=== PATIENT | female | born 1965 | race Caucasian/White ===

== ENCOUNTER 2021-07-06 06:29 | Day surgery (SDC) | payer OTHER ==
[~2021-07-06] VITALS: Ht 157.5 cm; Wt 157.5 kg
[~2021-07-06 06:29] MED LIST: BACLOFEN20 MG PO; FLUOXETINE HCL20 M1 PO; MELOXICAM7.5 MG PO; NEURONTIN800 MG PO; VITAMIN D250 MCG PO
--- NOTE | 2021-07-06 08:23 | NUR ---
PT ALERT, ORIENTED AND SUPPORTED BY HER . PT HAS RECENTLY MOVED TO [place] FROM [place] [place]. PT HERE FOR FIRST SCOPE, DEALT WITH PREP APPROPRIATELY. ALL QUESTIONS ASKED ANSWERED. PT REQUESTED PRAYER
--- NOTE | 2021-07-06 08:37 | NUR ---
07/06/21 0837 Mariosl Prather 0846-PATIENT ARRIVED TO PACU ON 2L NC RR EVEN. PATIENT VERY DROWSY EYES OPEN DENIES PAIN OR NAUSEA. FOLLOWS COMMANDS. ABDOMEN SOFT. IVF INFUSING. PATIENT FALLS BACK ASLEEP.
--- NOTE | 2021-07-06 09:41 | OR ---
[facility] [address], [place] [address] Signed DATE OF OPERATION: 07/06/2021 SURGEON: Randall Buchanan MD PREOPERATIVE DIAGNOSIS: Screening. POSTOPERATIVE DIAGNOSES: 1. Minimal to moderate sigmoid diverticulosis. 2. Minimal internal hemorrhoids. PROCEDURE: Colonoscopy without biopsy. ESTIMATED BLOOD LOSS: None. INDICATIONS: Reinaldo is a 55-year-old female, who was asked to see me for her initial screening colonoscopy. She describes her baseline as having multiple loose bowel movements each day. She has no family history of colon cancer or polyps. 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 In the office, I gave her a pamphlet on colonoscopy. She understands the nature of that test. There is risk including, but not limited to gas, bloating, crampy abdominal pain, bleeding, perforation requiring surgery, and missed diagnosis. She also understands the need for IV conscious sedation. She had expressed understanding and wished to proceed. PROCEDURE IN DETAIL: Reinaldo was taken into our endoscopy suite and placed in the left lateral decubitus position. She was given divided doses of 6 mg of Versed and 125 mcg of fentanyl to cover the case. A digital rectal exam was performed and this was unremarkable. The adult colonoscope was introduced and advanced all around into the cecum under direct visualization of camera without difficulty. Her prep was quite excellent. We could easily see the appendiceal orifice and the ileocecal valve. The scope was then slowly withdrawn. She does have diverticula in the sigmoid colon. They were minimal to moderate in number, moderate in size and scattered about. The rectum itself was unremarkable. Upon retroflexion of the scope, she has very minimal internal hemorrhoid tissue. After this, the gas was suctioned out and colonoscope removed. Reinaldo tolerated the procedure quite well. Electronically Signed By: RANDALL BUCHANAN MD 07/06/21 0941 PATIENT NAME: REINALDO DAWN OPERATIVE REPORT DATE OF : 65 REPORT #: [id number] PHYSICIAN: RANDALL BUCHANAN MD PCP: MEG COMBS PA-C REPORT IS CONFIDENTIAL AND NOT TO BE RELEASED WITHOUT AUTHORIZATION [address] [address] Signed RECOMMENDATIONS: Reinaldo can follow up in 10 years for repeat colonoscopy. Randall Buchanan MD ALB/MODL /[id number] cc: MD Meg Gage PA-C Copies: RANDALL BUCHANAN MD ~ Electronically Signed By: RANDALL BUCHANAN MD 07/06/21 0941 PATIENT NAME: REINALDO DAWN OPERATIVE REPORT DATE OF : 65 REPORT #: [id number] PHYSICIAN: RANDALL BUCHANAN MD PCP: MEG COMBS PA-C REPORT IS CONFIDENTIAL AND NOT TO BE RELEASED WITHOUT AUTHORIZATION
== END 2021-07-06 09:32 | disposition home or self-care (01) ==
LOC: DS 06:29
PROVIDERS: ATTEND Colon & Rectal Surgery
PROC: 0DJD8ZZ Inspection of Lower Intestinal Tract, Via Natural or Artificial Opening Endoscopic (ICD-10-PCS; principal; 2021-07-06 07:30)
DX: Z12.11 Encounter for screening for malignant neoplasm of colon (principal); K57.30 Diverticulosis of large intestine without perforation or abscess without bleeding; K64.8 Other hemorrhoids; Z87.891 Personal history of nicotine dependence
CPT/HCPCS: J2250; J3010